=== PATIENT | female | born 1980 | race Caucasian/White ===

== ENCOUNTER 2024-12-10 19:47 | Inpatient (IN) | payer MEDICARE, SELFPAY ==
[2024-12-10] VITALS (8 sets, daily range): BP systolic 106–135; BP diastolic 67–87; BMI 30.1; BMI 29.3
[2024-12-10 16:10] LABS: Glucose - Point of Care 539 mg/dl (70-99)
[2024-12-10 16:30] LABS: Hematocrit 31.0 % (37.0-47.0); Hemoglobin 10.7 g/dL (12.0-16.0); Mean Corp Hgb Conc. 34.5 g/dL (33.0-37.0); Mean Corpuscular Volume 88.6 fL (81.0-99.0); Nucleated Red Blood Cells % 0 %; Platelet Count 179 10^3/uL (130-400); Red Cell Dist. Width 19.1 % (11.5-14.5)
--- NOTE | 2024-12-10 17:05 | ED.GENMED ---
History of Present Illness
General
Chief Complaint: Blood Sugar Problem
Source: patient
Exam Limitations: none
Time Seen by Provider: 12/10/24 16:18
Nursing documentation reviewed up to this point in time: agreed with
History of Present Illness
History of Present Illness:
Patient with history of insulin-dependent diabetes, presents to ED secondary to elevated blood sugar, with concern that her insulin pump may not be functioning normally. Patient states that she recently updated her software on her pump and replaced
pump with insulin yesterday. Patient now thinks that may be the location of her pump may be the problem, due to underlying scar tissue from previous abdominal surgeries. Denies fever or chills. Denies vomiting or diarrhea. Denies abdominal pain.
Denies dizziness. Denies weakness.
Past History
Past History
ED Past Medical History: IDDM
ED Past Surgical History: None
Social History
Alcohol: Chronic alcoholic
Drug: Marijuana
Personal:
Living: with family
Family History
Family History: Other (reviewed and noncontributory)
Review of Systems
Review of Systems
Allergies reviewed?: Yes
All Other Systems: ROS reviewed and negative except as documented in HPI and ROS
Constitutional: Reports no symptoms
Respiratory: Reports no symptoms
Cardiac: Reports no symptoms
ABD/GI: Reports no symptoms; Denies abdominal pain, vomiting or diarrhea
: Reports no symptoms
Musculoskeletal: Reports no symptoms
Skin: Reports no symptoms
Neurological: Reports no symptoms; Denies dizzy or weakness
Phy Exam
Physical Exam
Physical Exam:
Physical Exam
General: no apparent distress, not acutely ill. afebrile
Head: nc/at. eomi
Neck: supple. no meningeal signs.
Heart: s1/s2 regular rate and rhythm. tachycardic
Lungs: no acute respiratory distress. clear bilaterally
Abdomen: normal bowel sounds. not tender.
Neuro: alert and oriented x 3. no focal neurological deficits
Skin: no rash
Psychiatric: well kept. interactive and cooperative
Extremities: no edema. no calf tenderness.
Course
Orders/Labs/Results
Orders:
Orders
12/10/24 16:13
Electrocardiogram (*1) Urgent
Reason for Study: Fatigue / Weakness
12/10/24 16:14
EKG- Treatment ONCE
12/10/24 16:23
Complete Blood Count/With Diff Urgent
Glycohemoglobin (HgbA1c) Urgent
12/10/24 16:34
Add On- LAB Urgent
Tests Added?: Magnesium, beta hydroxybutyrate, hemoglobin A1c
12/10/24 16:50
0.9% Sodium Chloride 1000 ml [Nss] 1,000 ml IV BOLUS
Insulin Aspart [NOVOLOG vial] 10 units SC NOW STA
12/10/24 17:15
B-Hydroxybutyrate Urgent
Comprehensive Metabolic Panel Urgent
Magnesium Urgent
Venous Blood Gas Urgent
%Oxygen/Room Air: 95
12/10/24 19:11
Reg Insulin 100 Units/100 ml [Novolin R Insulin Infusion] 100 units in 100 ml IV NOW
12/10/24 19:31
Admit/Transfer Patient As Directed
Co-Sign Provider:
Level of Care: Inpatient admission
Assign to:: Telemetry
Physician / Group: tiffanie rivers
Diagnosis: hyperglycemia/ iddm, afib
Reason for Telemetry: Arrhythmia
Date to Stop Telemetry: 12/13/24
Time to Stop Telemetry: 11:00
Reason for Hospitalization: hyperglycemia/ iddm, afib
Expected length of stay greater than two midnights?: Yes
ELOS- Estimated Length of Stay in days: 3
I certify the patient meets the requirements for IP care: Yes
Code Status As Directed
Resuscitation Status: Full Code
12/10/24 19:33
PRN Pain Medication Management As Directed
May give lesser potent ordered pain med per pt: Yes
preference::
Protocol:: Medication orders for pain may be administered in a
manner that supports deferring to patient preference
when the pt is:
- Requesting an ordered lesser potent pain medication.
Least to most potent pain medications are defined
as: acetaminophen < NSAID < tramadol < opioids
(morphine, oxycodone, hydromorphone).
- Requesting a lesser dose of the same medication IF
ORDERED.
- Requesting a less intrusive route of administration
if both routes are prescribed by the provider (PO <
IV).
12/13/24 11:00
DC Protocol for Telemetry ONCE
Abnormal Lab Results
12/10/24 12/10/24 12/10/24
16:08 16:23 17:15
RBC 3.50 L 10^6/uL
(4.20-5.40)
Hgb 10.7 L g/dL
(12.0-16.0)
Hct 31.0 L %
(37.0-47.0)
RDW 19.1 H %
(11.5-14.5)
Absolute Lymphs (auto) 1.0 L 10^3/uL
(1.2-3.4)
Absolute Monos (auto) 0.9 H 10^3/uL
(0.1-0.6)
Lymphocytes % 19.8 L %
(20.5-51.1)
Monocytes % 17.7 H %
(1.7-9.3)
VBG pH 7.47 H
(7.32-7.43)
VBG pO2 162 H mmHg
(30-50)
VBG HCO3 27.7 H mmol/L
(22-27)
Sodium 123 L mmol/L
(135-145)
Chloride 83 L mmol/L
(98-107)
Glucose 605 H* mg/dl
(70-99)
AST 78 H U/L
(14-36)
Alkaline Phosphatase 189 H U/L
(38-126)
B-Hydroxybutyrate 2.99 H mmol/L
(0.02-0.27)
POC Glucose 539 H* mg/dl
(70-99)
12/10/24 12/10/24
18:48 19:47
RBC
Hgb
Hct
RDW
Absolute Lymphs (auto)
Absolute Monos (auto)
Lymphocytes %
Monocytes %
VBG pH
VBG pO2
VBG HCO3
Sodium
Chloride
Glucose
AST
Alkaline Phosphatase
B-Hydroxybutyrate
POC Glucose 359 H mg/dl 192 H mg/dl
(70-99) (70-99)
12/10/24 16:23
12/10/24 17:15
Vital Signs
Initial and Last Documented VS:
Initial Vital Signs
BP
135/81
12/10/24 16:10
Last Documented Vital Signs
Temp Pulse Resp BP Pulse Ox
98.0 F 142 22 118/69 99
12/10/24 16:14 12/10/24 20:00 12/10/24 20:00 12/10/24 19:40 12/10/24 19:06
MDM/Problems Addressed
MDM/Problems Addressed:
History and exam concerning for significant hypoglycemia. Although there is no anion gap with normal pH, beta hydroxybutyrate level elevated. With patient's history of previous DKA, patient will be admitted on insulin drip for further evaluation.
Patient's insulin pump may need to be investigated.
*Pulse Oximetry
SaO2: 97
Oxygen Mode of Delivery: Room air
Patient hypoxic: no
*Critical Care Note
Total Time (30-74mins, 75-104mins- exclusive of procedures): Not Applicable
ED Attending Note
-
Portions of this chart may have been created with voice recognition software.� Occasional wrong word or��sound alike� substitutions may have occurred due to the inherent limitations of voice recognition software.
Discharge Plan
Departure
Patient Disposition: Admit
Date of Disposition: 12/10/24
Time of Disposition: 18:30
Admit to: Telemetry
Presentation/result/management discussed w/ accepting MD/DO: Hospitalist
Discharge Problem:
Hyperglycemia
Interventions
Interventions:
*Risk Screen - Suicide Last Done: 12/10/24 16:14
*General Assessment Last Done: 12/10/24 16:14
*Neglect/Abuse Screening Last Done: 12/10/24 16:14
*ED- Fall Risk Assessment Last Done: 12/10/24 16:14
*ED COVID-19 Vaccine History Last Done: 12/10/24 16:14
ED- Neurological Assessment Last Done: 12/10/24 16:18
[2024-12-10] MEDS: NSS 1000 IV ×2 (17:21→22:05)
[2024-12-10] MEDS: NOVOLOG vial 10 UNITS SC (17:22)
[2024-12-10 17:37] LABS: Venous Blood Gas B.E. 3.8 mmol/L (-4 to +4); Venous Blood Gas O2 Sat % 100.0 %
[2024-12-10 17:38] LABS: Venous Blood Gas O2 Therapy Air 95
[2024-12-10 18:04] LABS: ALT (SGPT) 25 U/L (0-35); AST (SGOT) 78 U/L (14-36); Albumin 4.1 g/dl (3.5-5.0); Alkaline Phosphatase 189 U/L (38-126); Blood Urea Nitrogen 15 mg/dl (7-17); Calcium 8.7 mg/dl (8.4-10.2); Carbon Dioxide 25 mmol/L (22-30); Chloride 83 mmol/L (98-107); Estimated Creatinine Clearance 102 ml/min; Glucose 605 mg/dl (70-99); Magnesium 1.7 mg/dl (1.6-2.3); Potassium 3.7 mmol/L (3.5-5.1); Sodium 123 mmol/L (135-145); Total Protein 8.1 g/dl (6.3-8.2); eGFR > 60.00
--- NOTE | 2024-12-10 18:42 | HPS.HSE ---
Family Physician
-
Family Physician: NOT KNOW UNKNOWN - PT DOES
Chief Complaint
-
Elevated blood sugar
History of Present Illness
44-year-old female from home with elevated blood sugar. She reports she changed her pump site yesterday along with updating herself where. She believes she applied an area of scar tissue with prior abdominal surgeries. Her blood sugar was noted
to be 605 in the ER. After 10 units subcu insulin blood sugar is now 359. The patient denies headache, fever, chills, sore throat, chest pain, palpitations, cough, shortness of breath, abdominal pain, nausea, vomiting, diarrhea, urinary symptoms
She has a past medical history IDDM with insulin pump, gastroparesis, diabetic myonecrosis, A-fib, defibrillator, chronic CHF, tricuspid leaflet valve disorder, GERD, celiac, hypertension, hypothyroidism, depression, alcohol abuse, marijuana use.
Medical History
Past Medical History
Past Medical History: Reports Other
Additional Past Medical History:
IDDM with insulin pump
gastroparesis
diabetic myonecrosis
A-fib
defibrillator
chronic CHF
tricuspid leaflet valve disorder
GERD
celiac
hypertension
hypothyroidism
depression
alcohol abuse prior
marijuana use.
Past Surgical History: Reports Other
Additional Past Surgical History:
Defibrillator
Social History
Tobacco: Non-smoker
Alcohol: Former (Stopped June 2024 prior vodka daily)
Drug: Marijuana
Personal:
Living: Alone
Employment: Disabled
Family History
Family History: Not pertinent
Allergies / Home Medications
Allergies reflects when Allergies were last updated in [facility].
Home Medications with original date entered in [facility]
Allergy/Medication List:
Allergies
Allergy/AdvReac Type Severity Reaction Status Date / Time
latex Allergy Unknown Unknown Verified 08/12/25 16:17
Home Medications
amitriptyline 10 mg tablet 10 mg PO HS Depression 11/13/20
aspirin 81 mg tablet,delayed release 81 mg PO DAILY Blood clot prevention/tx 11/13/20
cholecalciferol (vitamin D3) 50 mcg (2,000 unit) tablet 2,000 units PO DAILY Supplement 11/13/20
acetaminophen 300 mg-codeine 30 mg tablet 1 tab PO DAILYPRN PRN moderate pain 02/17/21
biotin 1 mg capsule 1 mg PO DAILY Supplement 02/17/21
colesevelam 625 mg tablet (WelChol) 625 mg PO DAILY High cholesterol 02/17/21
cyanocobalamin (vitamin B-12) 1,000 mcg tablet 1,000 mcg PO DAILY Supplement 02/17/21
folic acid 1 mg tablet 1 mg PO DAILY Supplement 02/17/21
gabapentin 100 mg capsule 100 mg PO DAILY@1400 Pain 02/17/21
levothyroxine 150 mcg tablet 150 mcg PO DAILY AT 0700 Thyroid 02/17/21
Eliquis 5 mg PO BID 12/10/24
amiodarone 200 mg PO DAILY 12/10/24
azathioprine 25 mg PO DAILY 12/10/24
ferrous sulfate 325 mg PO DAILY 12/10/24
gabapentin 100 mg PO BID 12/10/24
magnesium oxide 250 mg PO DAILY 12/10/24
melatonin 12 mg PO HS PRN insomnia 12/10/24
midodrine 2.5 mg PO DAILY 12/10/24
naltrexone 50 mg PO DAILY 12/10/24
potassium chloride 20 meq PO DAILY 12/10/24
subcutaneous insulin pump 12/10/24
torsemide 20 mg PO DAILY 12/10/24
Review of Systems
-
History Source: Patient and Family (Father at bedside)
A 12 point ROS was completed and negative except as noted: Yes
Constitutional: Denies Fatigue or Chills
EENT: Denies Sore Throat or Runny Nose
Respiratory: Denies Cough or Trouble Breathing
Cardiac: Denies Chest Pain, Diaphoresis, Palpitations or Syncope
Abdomen/GI: Denies Abdominal Pain, Nausea, Vomiting, Diarrhea or Constipated
: Denies Dysuria, Frequency, Flank Pain or Incontinence
Musculoskeletal: Denies Joint Pain or Edema
Skin: Denies Itching or Rash
Neurological: Denies Dizzy, Headache or Weakness
Endocrine: Reports No Symptoms
Hematologic/Lymphatic: Reports No Symptoms
Psych: Reports Calm
Physical Exam
Vital Signs
Vital Signs
Temp Pulse Resp BP Pulse Ox
98.0 F 135 17 135/81 97
12/10/24 16:14 12/10/24 16:15 12/10/24 16:15 12/10/24 16:14 12/10/24 17:05
Physical Exam
General: Conversant; No Pain, Fever or Chills
HEENT: NormoCephalic, Anicteric, PERRLA, [place] Conjunctivae, No Ptosis and Other (Dry oral mucosa)
Respiratory: Clear; No Wheezes, Rales or Rhonchi
Cardiac: S1/S2 and Tachycardia (Sinus tach 120 bpm versus a flutter paroxysmal); No Murmur, Rub, Gallop or Peripheral Edema
Breast: Deferred by me
GI: Soft, Non Tender, Non Distended, Normal Bowel Sounds and No Hepatosplenomegaly
Rectal: Deferred by Provider
Genito-urinary: Deferred by me
Musculoskeletal: No Clubbing, No Cyanosis and No Edema
Skin: Warm and Dry; No Rash or Jaundice
Neuro: AO x 3, No Motor Deficits, Nonfocal/grossly intact, Cranial Nerves Intact and No Sensory Deficits; No Slurred Speech, Facial Droop, Tremors or Sedated
Psych: Calm
Laboratory Results
-
12/10/24 16:23
12/10/24 17:15
Laboratory Results
Total Bilirubin 1.0 mg/dl (0.2-1.3) 12/10/24 17:15
AST 78 U/L (14-36) H 12/10/24 17:15
ALT 25 U/L (0-35) 12/10/24 17:15
Alkaline Phosphatase 189 U/L (38-126) H 12/10/24 17:15
Impression/Plan
-
Impression/plan:
Admit to telemetry
#Acute hyperglycemia nonketotic/IDDM likely due to malfunctioning insulin pump/diagnosis age 28
#History of diabetic neuropathy
HgbA1c 4 months ago 10.1
Blood sugar 605, B hydroxy 2.99, anion gap 15, pH 7.47
-Blood sugar down to 359 post 10 units subcu insulin
-Patient to change insulin site will monitor blood sugars every 4 hours with new insulin site
- Continue gabapentin
- If blood sugar not controlled by a.m. may consult clinical nurse educator
#Tachycardia acute on chronic versus paroxysmal A-fib with NEW RBBB
-IV NSS 100 cc an hour
-IV NSS 1 L x 1 L
- As needed Lopressor for HR greater than 120 persistent
EKG sinus tach 135 bpm with right bundle branch block
#Pseudohyponatremia due to hyperglycemia
NA 123-corrected sodium 131
- BMP in a.m.
# A-fib paroxysmal
#Defibrillator hx
#Tricuspid leaflet valve disorder
- Patient is due for surgical repair January 23
#Chronic CHF
Hold current torsemide
#Alcohol abuse prior, remission June 2024
Was drinking daily vodka for many years until July 23
#Marijuana use
Reports has not smoked in a few months
#Normocytic anemia
Hgb 10.7, MCV 88.6
#History gastroparesis due to DM 2
#History of diabetic myonecrosis
Was diagnosed at [facility]
- Patient receives IVIG just had last 2 days
#GERD
No reported meds
#Celiac disease
#HTN
- BP 135/81
#Hypothyroidism
- Continue levothyroxine
#Raynaud's
#Iron deficiency
Continue Feosol
#Depression
- Continue naltrexone 50 mg daily, azathioprine 25 mg, amitriptyline 10 mg at bedtime
DVT prophylaxis
Full code
[2024-12-10 18:49] LABS: Glucose - Point of Care 359 mg/dl (70-99)
--- NOTE | 2024-12-10 19:43 | W.PN.UPDATE ---
Update Note
Progress Note Update
This is an addendum to H&P written by Cnady Ragsdale on 12/10/2024. �Patient seen and examined independently with ADDICTIONS THERAPIST.
44-year-old female past medical history of type 1 diabetes, DKA, diabetic gastroparesis, paroxysmal atrial fibrillation on Eliquis, congestive heart failure, tricuspid valve disorder due for repair soon, celiac disease, Raynaud's disease, chronic
anemia, former alcohol use disorder, former marijuana use disorder, myositis on IVIG, eczema, presenting with elevated blood sugar due to placing an insulin pump likely being placed over scar tissue. �No fevers or chills, vomiting or diarrhea,
abdominal pain. �No weakness.
Slight palpitations earlier. �Heart rate at home can sometimes go up to 120s
Vital signs show tachycardia. �EKG with right bundle branch block, sinus tachycardia vs atrial flutter heart rate 127. Ketone smelling breath.�
Blood work shows sodium of 123. �Blood sugar 605. �Hemoglobin stable 10.7. �Anion gap of 15. �VBG showed pH of 7.47. �Beta hydroxybutyrate 2.99.
Patient with hyperglycemia secondary to likely misplaced pump over scar tissue. �No signs of DKA on labs. �She was given 10 units of NovoLog with improvement in blood sugar to 359. �Resume insulin pump over different location. �Continue IV fluids.
�If blood sugars not improved in the morning and consult diabetes ADDICTIONS THERAPIST.
Lopressor if needed for persistent tachycardia. �Should hopefully improve with IV fluids if sinus tachycardia.
[2024-12-10 19:49] LABS: Glucose - Point of Care 192 mg/dl (70-99)
[2024-12-10 21:55] LABS: Glucose - Point of Care 307 mg/dl (70-99)
[2024-12-10] MEDS: TYLENOL 650 MG PO (22:05)
[2024-12-10] MEDS: ELAVIL 10 MG PO (22:05)
[2024-12-10] MEDS: ELIQUIS 5 MG PO (22:06)
[2024-12-10] MEDS: LOPRESSOR 5 MG IV (22:07)
[2024-12-10] MEDS: PATIENT'S OWN INSULIN PUMP 3 UNITS SC (22:08)
--- NOTE | 2024-12-10 22:20 | VATNOTE ---
CURRENT IV SITE INSERTED 12/09 BY HOME FASTENER SEWING MACHINE OPERATOR FOR ANTICIAPTED 2DAYS OF IVIG INFUSIONS.PT ADMITTED TO HOSPITAL FOR LESS KAYLA 24 HOUR STAY. PT STATES SHE IS AN IMPOSSIBLE IV STICK AND IS REQUESTING IV SITE BE MAINTAINED. SITE APPEARS WNL. VAT TO
FOLLOW. PCN AWARE OF PLAN OF CARE.
[2024-12-10] MEDS: NEURONTIN 100 MG PO (22:35)
--- NOTE | 2024-12-10 23:00 | PTCARENOTE ---
pt is aaox3 no c/o pain, sob, or palpitations. DN=288's - administered iv Lopressor w/=eff. MG=864's. pt has own insulin pump to left lower abdomen. AccuCheck= 307 -insulin pump pr patient is Humalog .75 basal/hr and she administered 3units for
current AccuCheck. Updated MANAGER OB Justo.
Pt has right forearm INT that was placed by home infusion nurse for IVIG therapy - informed VAT---evaluated by Yudith FLETCHER and felix to use.
pt is oriented to room w/ call bishop in reach.
pt follows multiple specialist and has heart surgery schedule for valve repair in December. updated pt physician list and copy placed in chart.
[2024-12-11] VITALS (9 sets, daily range): BP systolic 107–152; BP diastolic 60–99; BMI 29.3; BMI 30.1
[2024-12-11 00:08] LABS: Glucose - Point of Care 314 mg/dl (70-99)
[2024-12-11 01:43] LABS: Glucose - Point of Care 230 mg/dl (70-99)
--- NOTE | 2024-12-11 01:54 | W.PN.UPDATE ---
Update Note
Progress Note Update
BS 307, patient bolusing her self, BS 230 at 0150
HR 144 Afib 133/76 afebrile. will order extra 5mg IV Lopressor now, labs now
patient asymptomatic.
[2024-12-11] MEDS: LOPRESSOR 5 MG IV ×4 (01:56→20:09)
[2024-12-11 02:32] LABS: Blood Urea Nitrogen 12 mg/dl (7-17); Calcium 8.9 mg/dl (8.4-10.2); Carbon Dioxide 29 mmol/L (22-30); Chloride 95 mmol/L (98-107); Estimated Creatinine Clearance 118 ml/min; Glucose 253 mg/dl (70-99); Magnesium 1.8 mg/dl (1.6-2.3); Potassium 2.8 mmol/L (3.5-5.1); Sodium 133 mmol/L (135-145); eGFR > 60.00
[2024-12-11] MEDS: KCL 40 MEQ PO ×3 (03:24→13:14)
[2024-12-11 03:39] LABS: Glucose - Point of Care 187 mg/dl (70-99)
[2024-12-11] MEDS: SYNTHROID 150 MCG PO (07:04)
--- NOTE | 2024-12-11 07:27 | W.PN.HOSP.TC ---
Today's Communication/Plan
-
See plan
Assessment / Plan
Assessment / Plan
Physical Exam
General: Not in acute distress
HEENT: Normocephalic, Moist mucosal membranes
Respiratory: Clear to Auscultation Bilaterally
Cardiac: S1/S2. Regular Rhythm and Tachycardia
GI: Soft, Non Tender, Non Distended, Normal Bowel Sounds
Musculoskeletal: No Cyanosis and No Edema
Skin: Warm and Dry
Neuro: AAO x 3, No Motor Deficits, Nonfocal/grossly intact, Cranial Nerves Intact and No Sensory Deficits
Psych: Calm
Assessment/Plan
44-year-old female past medical history of Type 1 Diabetes Mellitus, DKA, diabetic gastroparesis, diabetic myonecrosis?, paroxysmal atrial fibrillation on Eliquis, congestive heart failure, defibrillator, tricuspid valve disorder due for repair
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
pump likely being placed over scar tissue. No fevers or chills, vomiting or diarrhea, abdominal pain. No weakness. No evidence of DKA noted at the time of admission. Slight palpitations earlier. Heart rate at home can sometimes go up to 120s bpm.
Vital signs at the time of admission showed tachycardia. EKG with right bundle branch block, sinus tachycardia versus atrial flutter with heart rate of 127 bpm. Ketone smelling breath. Blood work showed sodium of 123. Blood sugar 605. Hemoglobin
stable 10.7. Anion gap of 15. VBG showed pH of 7.47. Beta hydroxybutyrate 2.99. Patient with hyperglycemia secondary to likely misplaced pump over scar tissue. She was given 10 units of NovoLog with improvement in blood sugar to 359. Resume
insulin pump over different location. Continue IV fluids. If blood sugars not improved in the morning and consult diabetes MOLD CAPPER. Lopressor if needed for persistent tachycardia. Should hopefully improve with IV fluids if sinus tachycardia. The
patient denied headache, fever, chills, sore throat, chest pain, palpitations, cough, shortness of breath, abdominal pain, nausea, vomiting, diarrhea or urinary symptoms.
#Acute hyperglycemia nonketotic/IDDM likely due to malfunctioning insulin pump/diagnosis age 28
#Type 1 Diabetes Mellitus
#History of diabetic neuropathy
-HgbA1c 4 months ago 10.1
-Initial blood sugar 605, B hydroxy 2.99, anion gap 15, pH 7.47 on venous blood gas, glucose improved with Insulin
-Patient to change insulin site will monitor blood sugars every 4 hours with new insulin site
-Patient stated that she DOES not take Lantus at home, but uses her Insulin Pump only
-Consulted Diabetes MOLD CAPPER as blood sugars still not controlled
#Pseudohyponatremia due to hyperglycemia likely from malfunction/malabsorption of insulin pump
- Improved with improvement in glucose levels
#Severe Hypokalemia
-Patient says that she does not take Potassium at home
-Magnesium okay -- but supplementation has been added to optimize serum Magnesium
-Replaced
-Recheck BMP
#Known History of A-fib/Atrial Flutter
#Sinus Tachycardia
-Patient reported that she has tachycardia chronically with HR up to ~120 bpm, today she was in the 130s
-Continue Eliquis
-Continue home amiodarone and metoprolol for goal heart rate less than 110 bpm
-Upon review of outpatient cardiology records it is believed her atrial arrhythmias are being driven by her 'massive' tricuspid regurgitation
#Chronic CHF
-Although patient received significant amount of IV fluids since admission, overall she appears euvolemic and compensated from a volume standpoint
-Patient underwent recent ANASTASIIA and therefore would not recommend repeating transthoracic echo at this time
-Continue torsemide
#Ventricular tachycardia/cardiac arrest in setting of acute DKA in October 2023 status post ICD which was explanted and now with subcutaneous Medtronic ICD placement, August 2024
#Defibrillator history -- subcutaneous Medtronic ICD
- Cardiology will arrange for ICD interrogation here in the hospital
#Recent Lower Jaw Molar (bottom 3 teeth removal)
-Continue home antibiotics Amoxicillin
#Severe Tricuspid leaflet valve disorder
- Patient is due for surgical repair in the next 1-2 months through her primary ui software engineer at [facility]
#Marijuana use
-Reports has not smoked in a few months
#Normocytic anemia
-Continue to monitor CBC
-Continue home iron supplementation
#History gastroparesis due to Type 2 Diabetes Mellitus
#History of diabetic myonecrosis
#Myopathy
- Was diagnosed at [facility]
- Patient receives IVIG; patient is due for her Gamunex (pharmacist Connie Manning here called and left a message for this patient's infusion pharmacy)
#History of Rhabdomyolysis
#GERD
-Stable
-Continue to monitor
#Celiac disease
#Hypertension
-Continue beta natalie
-Continue aldactone
#Hypothyroidism
- Continue Levothyroxine 200 mcg daily
- Although patient says she takes a gluten-free preparation at home, patient says that she is fine with taking the one available here in the hospital
#Raynaud's
#Psoriasis
-Takes Skyrizi outpatient
#Diabetic Neuropathy
-Continue home Gabapentin
#Iron deficiency
-Continue home Ferrous Sulfate
#Depression
- Mood stable
#History of Alcohol Use Disorder
- Patient has been sober for many months
- Continue naltrexone 50 mg daily
#Macular Edema (in left eye, both eyes are being treated)
#Celiac Disease
DVT prophylaxis: Eliquis
Code Status: Full code
Outpatient, patient said she sees a Teacher Citizenship, Pocket Builder, Fuel Truck Driver, Rental Salesperson, Primary care, Marketing Services Manager, [place], Vocational Teacher, Cardiac Electrophysiology and Neurology.
Total time spent today on caring for patient, including seeing and examining patient, chart review, placing orders, reviewing home medications, reviewing outside records, coordinating care with cardiology team and Diabetes Nurse Practitioner, and
documentation, was 65 minutes.
Anticipated Discharge: Within 24 hours
Subjective/Interval History
-
Date of Service: December 11, 2024
Patient was seen and examined. She denied any nausea, vomiting, dizziness, chest pain, shortness of breath or any other complaints.
Objective Data
-
Labs:
Laboratory Results
12/11/24
01:59
Sodium 133 L D
Potassium 2.8 L
Chloride 95 L
Carbon Dioxide 29
BUN 12
Creatinine 0.5 L
Glucose 253 H
Calcium 8.9
Vital Signs:
Vital Signs
Temp Pulse Resp BP Pulse Ox
98.7 F 129 18 121/75 100
12/11/24 03:15 12/11/24 03:15 12/11/24 03:15 12/11/24 03:15 12/11/24 03:15
I&O
12/10/24 12/11/24 12/12/24
06:59 06:59 06:59
Intake Total 500 / 500
Balance 500 / 500
[2024-12-11 08:09] LABS: Glucose - Point of Care 140 mg/dl (70-99)
[2024-12-11] MEDS: ASPIR LOW (ENTERIC COATED) 81 MG PO (08:14)
[2024-12-11] MEDS: FOLVITE 1 MG PO (08:14)
[2024-12-11] MEDS: NEURONTIN 100 MG PO ×3 (08:15→20:08)
[2024-12-11] MEDS: FEOSOL 325 MG PO ×2 (08:15→20:08)
[2024-12-11] MEDS: VITAMIN D3 (cholecalciferol) 50 MCG PO (08:15)
[2024-12-11] MEDS: ELIQUIS 5 MG PO ×2 (08:15→20:08)
[2024-12-11] MEDS: VITAMIN B-12 1000 MCG PO (08:15)
[2024-12-11] MEDS: REVIA 50 MG PO (08:16)
[2024-12-11] MEDS: PACERONE 200 MG PO (08:16)
[2024-12-11] MEDS: PATIENT'S OWN INSULIN PUMP SC (08:46)
[2024-12-11] MEDS: LR 500 IV (10:09)
[2024-12-11 10:11] LABS: Albumin 3.7 g/dl (3.5-5.0); Magnesium 1.9 mg/dl (1.6-2.3)
[2024-12-11] MEDS: MAGNESIUM OXIDE 500 MG PO (10:11)
[2024-12-11] MEDS: KCL 270 MEQ IV (10:11)
--- NOTE | 2024-12-11 10:13 | CON.CAR ---
Addendum entered and electronically signed by Jian Mario MD 12/11/24 13:09:
I saw and examined the patient on morning rounds.
The Agency Recruiter's note was reviewed and I agree with the note.
Comment: Briefly, 44-year-old woman past medical history of cardiac arrest status post subcutaneous ICD for secondary prevention, heart failure with preserved ejection fraction, severe tricuspid regurgitation, paroxysmal atrial fibrillation and type
1 diabetes presenting with DKA. Cardiology is consulted for tachycardia.
Patient with known history of atrial fibrillation/atrial flutter
Appears to be in atrial flutter by review of ECG and telemetry here
With treatment of DKA/fluid resuscitation tachycardia may improve
Would continue home amiodarone and metoprolol for goal heart rate less than 110 bpm
Continue home Eliquis for risk reduction of cardioembolic stroke
Overall appears euvolemic and compensated from a volume standpoint
Patient does have known severe tricuspid regurgitation and is undergoing workup for possible repair next month through her primary fashion consultant sales at [facility]
Underwent recent ANASTASIIA and therefore would not recommend repeating transthoracic echo at this time
For completeness we will arrange for ICD interrogation
Original Note:
Consultation
Consultation Request
Date/Time Consultation Requested: 12/11/2024
Date/Time Consultation Performed: 12/11/2024
Requesting Provider: Dr. Buckner
Performing Provider: Lucy Schmidt PA-C for Dr. Mario
Reason for Consultation: Tachycardia
Medical History
-
History of Present Illness:
Patient has a 44-year-old female past medical history of type 1 diabetes, DKA, diabetic gastroparesis, paroxysmal atrial fibrillation on Eliquis, Cardiac arrest with Medtronic ICD in 2023 on amiodarone, chronic heart failure, tricuspid valve
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
due to placing her insulin pump over scar tissue with failure to deliver insulin. She was found to have significantly elevated blood sugar at home and was seen by a nurse who recommended she be evaluated in emergency department. On arrival to
emergency department glucose was 605. She was provided insulin with improvement of her sugar. From a cardiac standpoint she has noted intermittent palpitations but she reports this is normal for her. She denies chest pain, shortness of breath,
dizziness or lightheadedness, edema, orthopnea, PND. �No fevers or chills, vomiting or diarrhea, abdominal pain. �No weakness.
Cardiology being consulted for concern of tachycardia, atrial fibrillation/flutter.
Patient reports outpatient fashion consultant sales is Dr. Yang Dotson in [facility] . Supply Chain Design Manager is Dr. Moisés Vargas [phone] with [facility] cardiology. Dr. Kevin Braxton thoracic surgery at [facility] [phone]
She reports she has a tricuspid valve disorder and had ANASTASIIA last week at [facility]. She is being followed by Dr. Kevin Braxton of thoracic surgery and has an appointment next week to discuss next step for her valvular heart disease.
Past medical history:
IDDM with insulin pump
Gastroparesis
Diabetic myonecrosis
Paroxysmal atrial fibrillation
Chronic anticoagulation on Eliquis
Cardiac arrest with Medtronic ICD placement
Chronic heart failure
Tricuspid leaflet valve disorder
GERD
Celiac
Hypertension
Hypothyroidism
Raynaud's disease
Depression
Prior alcohol abuse prior
History of marijuana use
Past Medical History
Past Medical History: Other (See HPI)
Past Surgical History: Cardiac (Subcutaneous Medtronic ICD) and Other (Partial finger amputations)
Social History
Tobacco: Non-Smoker
Alcohol: Former (Quit in June 2024, drank vodka daily)
Drug: Marijuana
Personal:
Living: Alone
Employment: Disabled
Family History
Family History: CAD (Father coronary artery disease, paroxysmal atrial fibrillation)
Allergies / Home Medications
Allergy/AdvReac Type Severity Reaction Status Date / Time
gluten Allergy Nausea Verified 12/10/24 23:05
latex Allergy Per Verified 12/10/24 21:18
�Medication �Instructions �Recorded �Confirmed �Type
amitriptyline 10 mg tablet 10 mg PO HS Depression 11/13/20 12/11/24 History
aspirin 81 mg tablet,delayed 81 mg PO DAILY Blood clot 11/13/20 12/10/24 History
release prevention/tx
cholecalciferol (vitamin D3) 50 2,000 units PO DAILY Supplement 11/13/20 12/10/24 History
mcg (2,000 unit) tablet
acetaminophen 300 mg-codeine 30 mg 1 tab PO DAILYPRN PRN moderate pain 02/17/21 12/11/24 History
tablet
biotin 1 mg capsule 1 mg PO DAILY Supplement 02/17/21 12/11/24 History
colesevelam 625 mg tablet (WelChol) 625 mg PO DAILY High cholesterol 02/17/21 02/17/21 History
cyanocobalamin (vitamin B-12) 1,000 mcg PO DAILY Supplement 02/17/21 12/10/24 History
1,000 mcg tablet
folic acid 1 mg tablet 1 mg PO DAILY Supplement 02/17/21 12/10/24 History
gabapentin 100 mg capsule 100 mg PO DAILY@1400 Pain 02/17/21 12/10/24 History
levothyroxine 150 mcg tablet 150 mcg PO DAILY AT 0700 Thyroid 02/17/21 12/10/24 History
Eliquis 5 mg PO BID Blood Clot 12/10/24 12/10/24 History
Prevention/Tx
amiodarone 200 mg PO DAILY Heart 12/10/24 12/11/24 History
Disease/Condition
azathioprine 25 mg PO DAILY Gout 12/10/24 12/10/24 History
ferrous sulfate 325 mg PO DAILY Supplement 12/10/24 12/10/24 History
gabapentin 200 mg PO TID Neurological 12/10/24 12/11/24 History
Condition
magnesium oxide 250 mg PO DAILY Supplement 12/10/24 12/10/24 History
melatonin 12 mg PO HS PRN insomnia 12/10/24 12/10/24 History
midodrine 2.5 mg PO DAILY Blood Pressure 12/10/24 12/10/24 History
naltrexone 50 mg PO DAILY ALCOHOL 12/10/24 12/10/24 History
potassium chloride 20 meq PO DAILY Supplement 12/10/24 12/10/24 History
subcutaneous insulin pump 12/10/24 12/10/24 History
torsemide 20 mg PO TID Fluid 12/10/24 12/11/24 History
Retention/Swelling
immune globulin(hum),capr(IgG) 10 40 ml IV Q3D Autoimmune Disorder 12/11/24 12/11/24 History
% intravenous solution
metoprolol succinate 25 mg 25 mg PO Q12H Blood Pressure 12/11/24 12/11/24 History
tablet,extended release 24 hr
risankizumab-rzaa 150 mg/mL 150 mg SC [id number] Autoimmune 12/11/24 12/11/24 History
subcutaneous pen injector (Skyrizi) Disorder
Review of Systems
-
History Source: Patient
All other systems: Negative unless noted
Physical Exam
Vital Signs
Temp Pulse Resp BP Pulse Ox
97.6 F 128 16 107/60 95
12/11/24 07:00 12/11/24 07:00 12/11/24 07:00 12/11/24 07:00 12/11/24 07:00
GEN: No distress, awake, Ox3, sitting in bed
HEENT: supple, anicteric, mmm
LUNGS: CTA, no wheezes/rales
CV: Reg rate and rhythm but tachycardic, S1/S2, 2/6 syst LSB murmur
ABD: soft, BS+, NT/ND
EXT: No edema, clubbing or cyanosis
NEURO: Gross non-focal
SKIN: No rash, warm, dry, pink
Lab Results
12/10/24 16:23
12/11/24 09:33
Troponin I Cancelled 12/11/24 21:45
Xfi-S-Jttgwvhhmpc Pept 1760 pg/ml 12/11/24 08:49
Impression / Plan
-
Outpatient fashion consultant sales is Dr. Yang Dotson in [facility] .
Supply Chain Design Manager is Dr. Moisés Vargas [phone] with [facility] cardiology.
Dr. Kevin Braxton thoracic surgery at [facility] [phone]
Impression:
Presented 12/10/2024 with weakness, hyperglycemia
Acute hyperglycemia
Hypokalemia
Hypomagnesemia
Paroxysmal atrial flutter/fibrillation
Sinus tachycardia
Severe tricuspid regurgitation
Paroxysmal atrial fibrillation
Chronic anticoagulation on Eliquis
Ventricular tachycardia/cardiac arrest in setting of acute DKA in October 2023 status post ICD which was explanted and now with subcutaneous Medtronic ICD placement, August 2024
Chronic heart failure
IDDM with insulin pump
Gastroparesis
Diabetic myonecrosis
Chronic anemia, baseline hemoglobin 8-9
GERD
Celiac
Hypertension
Hypothyroidism
Raynaud's disease with partial finger amputations
Depression
Prior alcohol abuse prior
History of marijuana use
Cardiac catheterization 11/02/2023 ([facility]): Mild nonobstructive coronary artery disease. Moderately elevated LVEDP. No significant xkzj-[id number] gradient on pullback across aortic valve.
ANASTASIIA September 11, 2024 ([facility]): EF 60 to 65%, LA dilated, RA severely dilated, trace MR, massive tricuspid regurgitation with central small jet that originates near septal leaflet versus between atrial septal can measure raising a possibility of either a
small perforation or mall coaptation and RV mildly dilated
Echo 11/13/2020: EF 70 to 75%. Hyperdynamic LV. Normal regional wall motion. Trace tricuspid regurgitation. PAP 27 mmHg
Plan:
-Presented 12/10/2024 with weakness, hyperglycemia was was found to be acute hyperglycemia likely from malfunction/malabsorption of insulin pump. Blood sugars significantly improved with insulin.
-Electrolyte disturbance with hypoglycemia and hypomagnesemia. Aggressive repletion of magnesium and potassium. I personally ordered repletion
-Patient has ongoing tachycardia with periods of paroxysmal atrial flutter/fibrillation. Upon review of outpatient cardiology records it is believed her atrial arrhythmias are being driven by her 'massive' tricuspid regurgitation. She reports
heart rates at home are always on the higher side. Hopefully heart rates will improve with improvement of blood sugar, fluid resuscitation and correction of electrolytes. Could consider uptitrating Toprol or amiodarone temporarily.
-Continue Eliquis 5 mg twice a day. Patient reports she is compliant taking medication.
-History of cardiac arrest/ventricular tachycardia in setting of DKA in October 2023. She was found to have no significant coronary artery disease on catheterization with normal ejection fraction. She initially had traditional ICD but it was then
explanted and she currently has subcutaneous Medtronic ICD. Will interrogate device, rep has been contacted. No sustained ventricular arrhythmias noted on telemetry. Continue beta-natalie and amiodarone
-History of chronic heart failure with preserved ejection fraction. proBNP 1760. Patient does not appear to be acutely volume overloaded. She does not have any heart failure symptoms. Would continue current outpatient regimen of torsemide 40 mg
daily and Aldactone 12.5 mg daily.
-Patient reports she had ANASTASIIA last week at [facility] in [place] as she is undergoing evaluation for tricuspid valve surgery with Dr. Braxton at [facility]. She has an appointment with Dr. Braxton next week to discuss recent ANASTASIIA and
surgical plans. No clinical need to repeat or perform echo this admission
Outpatient records reviewed with above chart reflecting information. This included records from Dr. Braxton CT surgery, outpatient fashion consultant sales Dr. Duckworth and vice president digital strategist Dr. Vargas. I spent 78 minutes reviewing prior records from multiple
collaborating providers, [id number] encounter, treatment plan and decision, discussion with nursing, hospitalist, and documentation
[facility] 12/11/2024:
Patient has a 44-year-old female past medical history of type 1 diabetes, DKA, diabetic gastroparesis, paroxysmal atrial fibrillation on Eliquis, Cardiac arrest with Medtronic ICD in 2023 on amiodarone, chronic heart failure, tricuspid valve
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
due to placing her insulin pump over scar tissue with failure to deliver insulin. She was found to have significantly elevated blood sugar at home and was seen by a nurse who recommended she be evaluated in emergency department. On arrival to
emergency department glucose was 605. She was provided insulin with improvement of her sugar. From a cardiac standpoint she has noted intermittent palpitations but she reports this is normal for her. She denies chest pain, shortness of breath,
dizziness or lightheadedness, edema, orthopnea, PND. �No fevers or chills, vomiting or diarrhea, abdominal pain. �No weakness.
Cardiology being consulted for concern of tachycardia, atrial fibrillation/flutter.
Patient reports outpatient fashion consultant sales is Dr. Yang Dotson in [facility] . Supply Chain Design Manager is Dr. Moisés Vargas [phone] with [facility] cardiology. Dr. Kevin Braxton thoracic surgery at [facility] [phone]
She reports she has a tricuspid valve disorder and had ANASTASIIA last week at [facility]. She is being followed by Dr. Kevin Braxton of thoracic surgery and has an appointment next week to discuss next step for her valvular heart disease.
Data Reviewed
-
EKG: Report Reviewed by me, Discussed with Physician, Discussed with Nurse and Discussed with Patient
Labs: Labs Reviewed by me, Discussed with Physician, Discussed with Nurse and Discussed with Patient
Old Records: Reviewed
[2024-12-11 10:27] LABS: Blood Urea Nitrogen 8 mg/dl (7-17); Calcium 8.8 mg/dl (8.4-10.2); Carbon Dioxide 25 mmol/L (22-30); Chloride 101 mmol/L (98-107); Estimated Creatinine Clearance 118 ml/min; Glucose 147 mg/dl (70-99); Potassium 3.4 mmol/L (3.5-5.1); Sodium 135 mmol/L (135-145); eGFR > 60.00
--- NOTE | 2024-12-11 10:35 | PN.DE.MGMTRT ---
Insulin Management
- -
12/11/2024 Diabetes Management Consult
Patient admitted 12/10 with Blood sugar problem, glucose 605. PMH: diabetes, gastroparesis, diabetic myonecrosis, afib, defib, chronic CHF, GERD, celiac disease, HTN, hypothyroid, depression, alcohol abuse, marijuana use. Prior to admission was
using the tandem control IQ pump with humalog insulin, autosoft infusion set and DexCom G7. No A1C reported, cr .5, eGFR > 60.
Patient is awake alert and oriented, resting in bed. She is able to discuss diabetes care. States she sees and endocrine in [place]. States she just updated her pump to be able to use the G7, replaced infusion set, but inserted in scar tissue in
abdomen. She has since changed her set and pump is infusing. Glucose currently 146. Pump settings:
Basal .75 Sensitivity 45, carb ratio 12, target 110.
24 hour basal total 18 units.
Will continue insulin pump with no changes to settings.
Discussed with nurse
Will follow
Diabetes History
- -
Type of Diabetes: 1
Pre-Admission Diabetes Regimen
12/10/24 12/10/24 12/11/24
16:23 17:15 01:59
Creatinine Cancelled 0.7 0.5 L
12/11/24 12/11/24
08:49 09:33
Creatinine 0.5 L Cancelled
Insulin Pump Settings
IP Diabetes Regimen
12/10/24 12/10/24 12/10/24
16:08 16:23 17:15
Glucose Cancelled 605 H*
POC Glucose 539 H*
12/10/24 12/10/24 12/10/24
18:48 19:47 21:43
Glucose
POC Glucose 359 H 192 H 307 H
12/10/24 12/11/24 12/11/24
23:57 01:31 01:59
Glucose 253 H
POC Glucose 314 H 230 H
12/11/24 12/11/24 12/11/24
03:28 07:58 08:49
Glucose 147 H
POC Glucose 187 H 140 H
12/11/24
09:33
Glucose Cancelled
POC Glucose
Patient Education
--- NOTE | 2024-12-11 10:45 | CM ---
Patient seen bedside. IA completed.
Patent lives alone in a 2 story home. Does okay with steps as long as she has railings.
Patient has insulin pump.
Patient is independent prior to admission.
No Hx VN.
Patient does not anticipate d/c needs.
Father will transport.
PCP: Jazzmine Foster from [place]
Pharmacy: [facility] , [facility]
Plan: Home no needs anticipated.
[2024-12-11] MEDS: PT'S OWN INSULIN PUMP - HumaLOG SC ×3 (10:57→16:56)
[2024-12-11 11:06] LABS: Glycohemoglobin (HgbA1c) 9.8 % (4.0-5.6)
[2024-12-11 12:05] LABS: Glucose - Point of Care 187 mg/dl (70-99)
[2024-12-11] MEDS: VITAMIN B1 100 MG PO (13:15)
[2024-12-11] MEDS: ALDACTONE 12.5 MG PO (13:15)
[2024-12-11] MEDS: LOPRESSOR 25 MG PO (13:17)
[2024-12-11] MEDS: AMOXIL 500 MG PO ×3 (13:17→22:09)
--- NOTE | 2024-12-11 16:10 | TRANSFER ---
pt received from 1a in room 412-1. pt ambulated to bed independently. pt AAOx3, VSS other than HR elevated in 120s which is not new. call bishop within reach, plan of care ongoing
[2024-12-11] MEDS: TYLENOL 650 MG PO ×2 (16:32→20:07)
[2024-12-11 16:47] LABS: Glucose - Point of Care 178 mg/dl (70-99)
[2024-12-11] MEDS: TOPROL XL 25 MG PO (17:36)
[2024-12-11 21:27] LABS: Glucose - Point of Care 245 mg/dl (70-99)
[2024-12-11] MEDS: PT'S OWN INSULIN PUMP - HumaLOG 2.7 UNIT SC (21:56)
[2024-12-11] MEDS: MELATONIN 12 MG PO (22:10)
[2024-12-12 02:59] VITALS: BP 137/94
[2024-12-12] MEDS: LOPRESSOR 5 MG IV ×3 (03:09→19:11)
[2024-12-12 06:00] VITALS: BMI 29.9
[2024-12-12] MEDS: TYLENOL 650 MG PO ×3 (06:07→21:50)
[2024-12-12] MEDS: SYNTHROID 200 MCG PO (06:08)
[2024-12-12] MEDS: TOPROL XL 25 MG PO ×2 (06:08→12:46)
[2024-12-12 07:25] VITALS: BP 127/85
[2024-12-12 07:51] LABS: Glucose - Point of Care 146 mg/dl (70-99)
--- NOTE | 2024-12-12 07:58 | PN.DE.MGMTRT ---
Insulin Management
- -
12/12/2024 Diabetes Management Consult Follow up
Patient admitted 12/10 with Blood sugar problem, glucose 605. PMH: diabetes, gastroparesis, diabetic myonecrosis, afib, defib, chronic CHF, GERD, celiac disease, HTN, hypothyroid, depression, alcohol abuse, marijuana use. Prior to admission was
using the tandem control IQ pump with humalog insulin, autosoft infusion set and DexCom G7. No A1C reported, cr .5, eGFR > 60.
Patient is awake alert and oriented, resting in bed. She is able to discuss diabetes care. States she sees and endocrine in [place]. States she just updated her pump to be able to use the G7, replaced infusion set, but inserted in scar tissue in
abdomen. She has since changed her set and pump is infusing. Glucose range 146 to 245, corrected with 2.7 units. Fasting glucose 146. Pump settings:
Basal .75 Sensitivity 45, carb ratio 12, target 110.
24 hour basal total 18 units.
Will continue insulin pump with no changes to settings.
Discussed with nurse
Will follow
Diabetes History
- -
Type of Diabetes: 1
Pre-Admission Diabetes Regimen
12/11/24 12/11/24
08:49 09:33
Creatinine 0.5 L Cancelled
Lab Results
Hemoglobin A1c 9.8 % (4.0-5.6) H 12/10/24 16:23
Insulin Pump Settings
IP Diabetes Regimen
12/11/24 12/11/24 12/11/24
07:58 08:49 09:33
Glucose 147 H Cancelled
POC Glucose 140 H
12/11/24 12/11/24 12/11/24
11:53 16:46 21:26
Glucose
POC Glucose 187 H 178 H 245 H
12/12/24
07:50
Glucose
POC Glucose 146 H
Meal type: Dinner
Amount consumed: 100%
Patient Education
[2024-12-12 08:35] LABS: Hematocrit 32.6 % (37.0-47.0); Hemoglobin 10.3 g/dL (12.0-16.0); Mean Corp Hgb Conc. 31.6 g/dL (33.0-37.0); Mean Corpuscular Volume 96.2 fL (81.0-99.0); Platelet Count 141 10^3/uL (130-400); Red Cell Dist. Width 19.9 % (11.5-14.5)
--- NOTE | 2024-12-12 08:43 | W.PN.HOSP.TC ---
Today's Communication/Plan
-
Today I discussed patient's case with cardiology who said that patient should continue to be hospitalized given her tachycardia -- beta natalie increased and awaiting improvement in the tachycardia
Continue Insulin pump
Continue guideline directed medical therapy
Continue to monitor on telemetry
Assessment / Plan
Assessment / Plan
Physical Exam
General: Not in acute distress
HEENT: Normocephalic, Moist mucosal membranes
Respiratory: Clear to Auscultation Bilaterally
Cardiac: S1/S2. Regular Rhythm and Tachycardia
GI: Soft, Non Tender, Non Distended, Normal Bowel Sounds
Musculoskeletal: No Cyanosis and No Edema
Skin: Warm and Dry
Neuro: AAO x 3, No Motor Deficits, Nonfocal/grossly intact, Cranial Nerves Intact and No Sensory Deficits
Psych: Calm
Assessment/Plan
44-year-old female past medical history of Type 1 Diabetes Mellitus, DKA, diabetic gastroparesis, diabetic myonecrosis?, paroxysmal atrial fibrillation on Eliquis, congestive heart failure, defibrillator, tricuspid valve disorder due for repair
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
pump likely being placed over scar tissue. No fevers or chills, vomiting or diarrhea, abdominal pain. No weakness. No evidence of DKA noted at the time of admission. Slight palpitations earlier. Heart rate at home can sometimes go up to 120s bpm.
Vital signs at the time of admission showed tachycardia. EKG with right bundle branch block, sinus tachycardia versus atrial flutter with heart rate of 127 bpm. Ketone smelling breath. Blood work showed sodium of 123. Blood sugar 605. Hemoglobin
stable 10.7. Anion gap of 15. VBG showed pH of 7.47. Beta hydroxybutyrate 2.99. Patient with hyperglycemia secondary to likely misplaced pump over scar tissue. She was given 10 units of NovoLog with improvement in blood sugar to 359. Resume
insulin pump over different location. Continue IV fluids. If blood sugars not improved in the morning and consult diabetes SENIOR MOBILE APPLICATION DEVELOPER. Lopressor if needed for persistent tachycardia. Should hopefully improve with IV fluids if sinus tachycardia. The
patient denied headache, fever, chills, sore throat, chest pain, palpitations, cough, shortness of breath, abdominal pain, nausea, vomiting, diarrhea or urinary symptoms.
#Acute hyperglycemia nonketotic/IDDM likely due to malfunctioning insulin pump/diagnosis age 28
#Type 1 Diabetes Mellitus
#History of diabetic neuropathy
-NOT in DKA
-HgbA1c 4 months ago 10.1
-Initial blood sugar 605, B hydroxy 2.99, anion gap 15, pH 7.47 on venous blood gas, glucose improved with Insulin
-Patient to change insulin site will monitor blood sugars every 4 hours with new insulin site
-Patient stated that she DOES not take Lantus at home, but uses her Insulin Pump only
-Consulted Diabetes SENIOR MOBILE APPLICATION DEVELOPER as blood sugars still not controlled
#Pseudohyponatremia due to hyperglycemia likely from malfunction/malabsorption of insulin pump
- Resolved with improvement in glucose levels
#Severe Hypokalemia - RESOLVED
-Patient says that she does not take Potassium at home
-Magnesium okay -- but supplementation was given to optimize serum Magnesium, given her cardiac comorbidities
-Replaced
-Recheck BMP
#Known History of A-fib/Atrial Flutter
#Sinus Tachycardia
-Patient reported that she has tachycardia chronically with HR up to ~120 bpm -- still remains quite high, often above the 120s range
-Continue Eliquis
-Continue home amiodarone and metoprolol (Toprol increased on 12/12/24 to 50 mg BID for better HR control) for goal heart rate less than 110 bpm
-Upon review of outpatient cardiology records it is believed her atrial arrhythmias are being driven by her 'massive' tricuspid regurgitation
#Chronic CHF
-Although patient received significant amount of IV fluids since admission, overall she appears euvolemic and compensated from a volume standpoint
-Patient underwent recent ANASTASIIA and therefore would not recommend repeating transthoracic echo at this time
-Continue torsemide
-Continue Aldactone
-Patient reported that she had ANASTASIIA last week at [facility] in [place] as she is undergoing evaluation for tricuspid valve surgery with Dr. Braxton at [facility]. She has an appointment with Dr. Braxton next week to discuss recent ANASTASIIA and
surgical plans. No clinical need to repeat or perform echo this admission
#Ventricular tachycardia/cardiac arrest in setting of acute DKA in October 2023 status post ICD which was explanted and now with subcutaneous Medtronic ICD placement, August 2024
#Defibrillator history -- subcutaneous Medtronic ICD
- Cardiology will arrange for ICD interrogation here in the hospital
#Recent Lower Jaw Molar (bottom 3 teeth removal)
-Continue home antibiotics Amoxicillin
#Severe Tricuspid leaflet valve disorder
- Patient is due for surgical repair in the next 1-2 months through her primary fiber optics supervisor at [facility]
#Marijuana use
-Reports has not smoked in a few months
#Normocytic anemia
-Continue to monitor CBC
-Continue home iron supplementation
#History gastroparesis due to Type 2 Diabetes Mellitus
#History of diabetic myonecrosis
#Myopathy
- Was diagnosed at [facility]
- Patient receives IVIG; patient is due for her Gamunex (pharmacist Connie Manning here called and left a message for this patient's infusion pharmacy)
#History of Rhabdomyolysis
#GERD
-Stable
-Continue to monitor
#Celiac disease
#Hypertension
-Continue beta natalie
-Continue aldactone
#Hypothyroidism
- Continue Levothyroxine 200 mcg daily
- Although patient says she takes a gluten-free preparation at home, patient says that she is fine with taking the one available here in the hospital
#Raynaud's
#Psoriasis
-Takes Skyrizi outpatient
#Diabetic Neuropathy
-Continue home Gabapentin
#Iron deficiency
-Continue home Ferrous Sulfate
#Depression
- Mood stable
#History of Alcohol Use Disorder
- Patient has been sober for many months
- Continue naltrexone 50 mg daily
#Macular Edema (in left eye, both eyes are being treated)
#Celiac Disease
DVT prophylaxis: Eliquis
Code Status: Full code
Outpatient, patient said she sees a Plate Printer, Workers Compensation Claims Assistant, Elephant Tamer, Farm Or Ranch Animal Caretaker, Primary care, Filter Tender Jelly, Bottle House Quality Control Technician, Forklift Driver, Cardiac Electrophysiology and Neurology.
Anticipated Discharge: Within 24 hours
Subjective/Interval History
-
Date of Service: December 12, 2024
Patient was seen and examined. She denied any symptoms or complaints.
Objective Data
-
Labs:
Laboratory Results
12/12/24
07:53
WBC 3.3 L
Hgb 10.3 L
Hct 32.6 L
Plt Count 141 D
Sodium Pending
Potassium Pending
Chloride Pending
Carbon Dioxide Pending
BUN Pending
Creatinine Pending
Glucose Pending
Calcium Pending
Vital Signs:
Vital Signs
Temp Pulse Resp BP Pulse Ox
98.0 F 129 16 127/85 98
12/12/24 07:25 12/12/24 07:25 12/12/24 07:25 12/12/24 07:25 12/12/24 07:25
I&O
12/11/24 12/12/24 12/13/24
06:59 06:59 06:59
Intake Total 500 / 500 1200 / 1200
Balance 500 / 500 1200 / 1200
[2024-12-12 08:58] LABS: Blood Urea Nitrogen 7 mg/dl (7-17); Calcium 9.0 mg/dl (8.4-10.2); Carbon Dioxide 28 mmol/L (22-30); Chloride 104 mmol/L (98-107); Estimated Creatinine Clearance 119 ml/min; Glucose 150 mg/dl (70-99); Magnesium 1.8 mg/dl (1.6-2.3); Potassium 4.3 mmol/L (3.5-5.1); Sodium 137 mmol/L (135-145); eGFR > 60.00
[2024-12-12] MEDS: PT'S OWN INSULIN PUMP - HumaLOG SC ×2 (09:37→17:20)
[2024-12-12] MEDS: REVIA 50 MG PO (09:44)
[2024-12-12] MEDS: VITAMIN B-12 1000 MCG PO (09:44)
[2024-12-12] MEDS: VITAMIN B1 100 MG PO (09:44)
[2024-12-12] MEDS: NEURONTIN 100 MG PO ×3 (09:44→20:01)
[2024-12-12] MEDS: FOLVITE 1 MG PO (09:44)
[2024-12-12] MEDS: AMOXIL 500 MG PO ×3 (09:45→21:49)
[2024-12-12] MEDS: MAGNESIUM OXIDE 250 MG PO (09:45)
[2024-12-12] MEDS: VITAMIN D3 (cholecalciferol) 50 MCG PO (09:46)
[2024-12-12] MEDS: FEOSOL 325 MG PO ×2 (09:46→20:04)
[2024-12-12] MEDS: ELIQUIS 5 MG PO ×2 (09:46→20:01)
[2024-12-12] MEDS: ALDACTONE 12.5 MG PO (09:47)
[2024-12-12] MEDS: DEMADEX 40 MG PO (09:47)
[2024-12-12] MEDS: PACERONE 200 MG PO (09:48)
--- NOTE | 2024-12-12 10:47 | W.PN.CARDCBS ---
Addendum entered and electronically signed by Porter Ramos MD 12/12/24 14:42:
44-year-old woman with DKA, upon presentation to [facility] was in atrial fibs flutter with rapid RVR
PM type 1 diabetes, history of DKA, diabetic gastroparesis, PAF, history of subcutaneous ICD in 2023 for cardiac arrest on amiodarone, HFpEF, tricuspid valve regurgitation scheduled for repair at [facility], Raynaud's, celiac disease, history of EtOH
and marijuana use, history of myositis
Current meds: Amiodarone 200 mg a day, apixaban 5 mg twice daily, Neurontin 100 mg twice daily, with 100, naltrexone, amoxicillin, mag oxide, spironolactone 12.5 daily, thiamine, torsemide 40 mg a day, iron, metoprolol ER just doubled to 50 mg twice
daily
130/87, pulse 133, respiratory rate 16, afebrile, weight is 79 kg, head neck exam unremarkable, tachycardic 120s, lungs are clear, abdomen benign extremities without clubbing cyanosis or edema
ECG with atrial flutter 2-1
Hemoglobin 10.3, platelets 141, BUN/creatinine 7 and 0.5
Impression:
DKA, improved
History of ventricular tachycardia with subcu ICD
Atrial flutter, paroxysmal, onset likely 48 to 72 hours ago
Tricuspid regurgitation, plan for intervention in December, percutaneous versus surgical at [facility]
Gastroparesis
Chronic anemia
Celiac disease
Raynaud's with history of finger amputations
Depression
Alcohol and marijuana use
Plan:
She appears comfortable but I suspect her ventricular response will be very difficult to control medically. She remains in atrial flutter with 2-1 conduction.
She reports she has been compliant with Eliquis.
Best option is to discharge her in sinus rhythm. We will plan on cardioversion in the morning. She has had a cardioversion in the past, recently about 2 months ago. She agrees to proceed. Risks and benefits reviewed.
Thereafter, she could be discharged with follow-up at [facility]. She is here because she visits her parents.
Original Note:
Today's Communication / Plan
-
-uptitrate Toprol
-cont Eliquis
-f/u with outpt carpenter railcar 1 week after discharge
Impression / Plan
-
Outpatient carpenter railcar is Dr. Yang Dotson in [facility] .
Behavioral Instructor is Dr. Moisés Vargas [phone] with [facility] cardiology.
Dr. Kevin Braxton thoracic surgery at [facility] [phone]
Impression:
Presented 12/10/2024 with weakness, hyperglycemia
Acute hyperglycemia
Hypokalemia
Hypomagnesemia
Paroxysmal atrial flutter/fibrillation
Sinus tachycardia
Severe tricuspid regurgitation
Paroxysmal atrial fibrillation
Chronic anticoagulation on Eliquis
Ventricular tachycardia/cardiac arrest in setting of acute DKA in October 2023 status post ICD which was explanted and now with subcutaneous [employer] ICD placement, August 2024
Chronic heart failure
IDDM with insulin pump
Gastroparesis
Diabetic myonecrosis
Chronic anemia, baseline hemoglobin 8-9
GERD
Celiac
Hypertension
Hypothyroidism
Raynaud's disease with partial finger amputations
Depression
Prior alcohol abuse prior
History of marijuana use
Cardiac catheterization 11/02/2023 ([facility]): Mild nonobstructive coronary artery disease. Moderately elevated LVEDP. No significant [id number] gradient on pullback across aortic valve.
ANASTASIIA September 11, 2024 ([facility]): EF 60 to 65%, LA dilated, RA severely dilated, trace MR, massive tricuspid regurgitation with central small jet that originates near septal leaflet versus between atrial septal can measure raising a possibility of either a
small perforation or mall coaptation and RV mildly dilated
Echo 11/13/2020: EF 70 to 75%. Hyperdynamic LV. Normal regional wall motion. Trace tricuspid regurgitation. PAP 27 mmHg
Plan:
-Presented 12/10/2024 with weakness, hyperglycemia was was found to be acute hyperglycemia likely from malfunction/malabsorption of insulin pump. Blood sugars significantly improved with insulin.
-Electrolyte disturbance with hypoglycemia and hypomagnesemia. Aggressive repletion of magnesium and potassium. K 2.8, Mag 1.7 on 12/10/2024. Labs today 12/12 with improvement K 4.3, Mag 1.8
-Patient has ongoing tachycardia with periods of paroxysmal atrial flutter/fibrillation. Has been in atrial flutter throughout this hospitalization, HRs 120-140 bpm. Upon review of outpatient cardiology records it is believed her atrial
arrhythmias are being driven by her 'massive' tricuspid regurgitation. She reports heart rates at home are always on the higher side. HRs remain elevated despite improvement of blood sugar, fluid resuscitation and correction of electrolytes.
-uptitrate Toprol to 50 mg bid- I ordered with one time now dose of 25 mg
-Continue Eliquis 5 mg twice a day. Patient reports she is compliant taking medication.
-History of cardiac arrest/ventricular tachycardia in setting of DKA in October 2023. She was found to have no significant coronary artery disease on catheterization with normal ejection fraction. She initially had traditional ICD but it was then
explanted and she currently has subcutaneous [employer] ICD (confirmed [employer] on outpt records). Will interrogate device today, rep has been contacted. No sustained ventricular arrhythmias noted on telemetry. Continue
beta-natalie and amiodarone
-History of chronic heart failure with preserved ejection fraction. proBNP 1760. Patient does not appear to be acutely volume overloaded. She does not have any heart failure symptoms. Would continue current outpatient regimen of torsemide 40 mg
daily and Aldactone 12.5 mg daily.
-Patient reports she had ANASATSIIA last week at [facility] in [place] as she is undergoing evaluation for tricuspid valve surgery with Dr. Braxton at [facility]. She has an appointment with Dr. Braxton next week to discuss recent ANASTASIIA and
surgical plans. No clinical need to repeat or perform echo this admission
Outpatient records reviewed with above chart reflecting information. This included records from Dr. Braxton CT surgery, outpatient carpenter railcar Dr. Duckworth and contact worker lithography Dr. Vargas. I spent 78 minutes reviewing prior records from multiple
collaborating providers, [id number] encounter, treatment plan and decision, discussion with nursing, hospitalist, and documentation
[facility] 12/11/2024:
Patient has a 44-year-old female past medical history of type 1 diabetes, DKA, diabetic gastroparesis, paroxysmal atrial fibrillation on Eliquis, Cardiac arrest with Medtronic ICD in 2023 on amiodarone, chronic heart failure, tricuspid valve
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
due to placing her insulin pump over scar tissue with failure to deliver insulin. She was found to have significantly elevated blood sugar at home and was seen by a nurse who recommended she be evaluated in emergency department. On arrival to
emergency department glucose was 605. She was provided insulin with improvement of her sugar. From a cardiac standpoint she has noted intermittent palpitations but she reports this is normal for her. She denies chest pain, shortness of breath,
dizziness or lightheadedness, edema, orthopnea, PND. �No fevers or chills, vomiting or diarrhea, abdominal pain. �No weakness.
Cardiology being consulted for concern of tachycardia, atrial fibrillation/flutter.
Patient reports outpatient carpenter railcar is Dr. Yang Dotson in [facility] . Behavioral Instructor is Dr. Moisés aVrgas [phone] with [facility] cardiology. Dr. Kevin Braxton thoracic surgery at [facility] [phone]
She reports she has a tricuspid valve disorder and had ANASTASIIA last week at [facility]. She is being followed by Dr. Kevin Braxton of thoracic surgery and has an appointment next week to discuss next step for her valvular heart disease.
Progress Note - Museum Archivist
Subjective
Date of Service: December 12, 2024
HRs remain elevated in aflutter
pt denies palps, lightheadedness, CP, SOB
electrolytes improved
Objective
Labs:
12/12/24 07:53
12/12/24 07:53
Labs
Hgb 10.3 g/dL (12.0-16.0) L 12/12/24 07:53
Hct 32.6 % (37.0-47.0) L 12/12/24 07:53
Plt Count 141 10^3/uL (130-400) D 12/12/24 07:53
Sodium 137 mmol/L (135-145) 12/12/24 07:53
Potassium 4.3 mmol/L (3.5-5.1) D 12/12/24 07:53
BUN 7 mg/dl (7-17) 12/12/24 07:53
Creatinine 0.5 mg/dL (0.6-1.0) L 12/12/24 07:53
Glucose 150 mg/dl (70-99) H 12/12/24 07:53
Troponins
12/11/24 12/11/24 12/11/24
09:45 15:45 21:45
Troponin I Cancelled Cancelled Cancelled
Vital Signs and I&O:
Vital Signs
Temp Pulse Resp BP Pulse Ox
98.0 F 130 16 139/94 98
12/12/24 07:25 12/12/24 10:01 12/12/24 07:25 12/12/24 10:01 12/12/24 07:25
Vital Signs
Temp Pulse Resp BP Pulse Ox
98.0 F 130 16 139/94 98
12/12/24 07:25 12/12/24 10:01 12/12/24 07:25 12/12/24 10:01 12/12/24 07:25
Intake & Output
08/12/12/11/24 12/12/24 12/13/24
06:59 06:59 06:59 06:59
Intake Total 500 / 500 1200 / 1200
Balance 500 / 500 1200 / 1200
Physical Exam
Physical Exam
GEN: No distress, awake, Ox3
HEENT: supple, anicteric, mmm
LUNGS: CTA, no wheezes/rales
CV: tachy, Reg, S1/S2,2/6 syst LSB
ABD: soft, BS+, NT/ND
EXT: No edema
NEURO: Gross non-focal
SKIN: wound L ankle/talamantes, covered with drsg
[2024-12-12 11:17] VITALS: BP 143/89
[2024-12-12 11:30] LABS: Glucose - Point of Care 239 mg/dl (70-99)
[2024-12-12] MEDS: PT'S OWN INSULIN PUMP - HumaLOG 2.78 UNIT SC (11:35)
--- NOTE | 2024-12-12 13:00 | PTCARENOTE ---
pt HR alarming up to 150s on tele monitor while standing. EKG obtained, confirming aflutter with 2:1 AV conduction. pt BP stable at 130/87. no c/o chest pain, SOB, or palpitations. provider aware. no new orders at this time
[2024-12-12 15:30] VITALS: BP 127/86
[2024-12-12 17:18] LABS: Glucose - Point of Care 127 mg/dl (70-99)
[2024-12-12 18:18] LABS: Glucose - Point of Care 158 mg/dl (70-99)
[2024-12-12 19:44] VITALS: BP 112/80
[2024-12-12] MEDS: TOPROL XL 50 MG PO (20:01)
[2024-12-12 21:28] LABS: Glucose - Point of Care 184 mg/dl (70-99)
[2024-12-12] MEDS: MELATONIN 12 MG PO (21:50)
[2024-12-12] MEDS: PT'S OWN INSULIN PUMP - HumaLOG 0.55 UNIT SC (21:52)
[2024-12-12 23:51] VITALS: BP 125/86
[2024-12-13] MEDS: LOPRESSOR 5 MG IV (01:11)
[2024-12-13 03:55] VITALS: BP 120/84
[2024-12-13] MEDS: SYNTHROID 200 MCG PO (05:40)
[2024-12-13 05:51] LABS: Glucose - Point of Care 206 mg/dl (70-99)
[2024-12-13 06:00] VITALS: BMI 29.1
[2024-12-13] MEDS: PT'S OWN INSULIN PUMP - HumaLOG 2.12 UNIT SC (06:18)
[2024-12-13 07:00] VITALS: BP 118/80
--- NOTE | 2024-12-13 07:08 | W.PN.HOSP.TC ---
Today's Communication/Plan
-
Discharge today
Assessment / Plan
Assessment / Plan
Physical Exam
General: Not in acute distress
HEENT: Normocephalic, Moist mucosal membranes
Respiratory: Clear to Auscultation Bilaterally
Cardiac: S1/S2. Regular Rhythm and Tachycardia
GI: Soft, Non Tender, Non Distended, Normal Bowel Sounds
Musculoskeletal: No Cyanosis and No Edema
Skin: Warm and Dry
Neuro: AAO x 3, No Motor Deficits, Nonfocal/grossly intact, Cranial Nerves Intact and No Sensory Deficits
Psych: Calm
Assessment/Plan
44-year-old female past medical history of Type 1 Diabetes Mellitus, DKA, diabetic gastroparesis, diabetic myonecrosis?, paroxysmal atrial fibrillation on Eliquis, congestive heart failure, defibrillator, tricuspid valve disorder due for repair
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
pump likely being placed over scar tissue. No fevers or chills, vomiting or diarrhea, abdominal pain. No weakness. No evidence of DKA noted at the time of admission. Slight palpitations earlier. Heart rate at home can sometimes go up to 120s bpm.
Vital signs at the time of admission showed tachycardia. EKG with right bundle branch block, sinus tachycardia versus atrial flutter with heart rate of 127 bpm. Ketone smelling breath. Blood work showed sodium of 123. Blood sugar 605. Hemoglobin
stable 10.7. Anion gap of 15. VBG showed pH of 7.47. Beta hydroxybutyrate 2.99. Patient with hyperglycemia secondary to likely misplaced pump over scar tissue. She was given 10 units of NovoLog with improvement in blood sugar to 359. Resume
insulin pump over different location. Continue IV fluids. If blood sugars not improved in the morning and consult diabetes INSIDE BARREL LATHE OPERATOR. Lopressor if needed for persistent tachycardia. Should hopefully improve with IV fluids if sinus tachycardia. The
patient denied headache, fever, chills, sore throat, chest pain, palpitations, cough, shortness of breath, abdominal pain, nausea, vomiting, diarrhea or urinary symptoms.
#Acute hyperglycemia nonketotic/IDDM likely due to malfunctioning insulin pump/diagnosis age 28
#Type 1 Diabetes Mellitus
#History of diabetic neuropathy
-NOT in DKA
-HgbA1c 4 months ago 10.1
-Initial blood sugar 605, B hydroxy 2.99, anion gap 15, pH 7.47 on venous blood gas, glucose improved with Insulin
-Patient to change insulin site will monitor blood sugars every 4 hours with new insulin site
-Patient stated that she DOES not take Lantus at home, but uses her Insulin Pump only
-Consulted Diabetes INSIDE BARREL LATHE OPERATOR as blood sugars were still not controlled
#Pseudohyponatremia due to hyperglycemia likely from malfunction/malabsorption of insulin pump
- Resolved with improvement in glucose levels
#Severe Hypokalemia - RESOLVED
-Patient says that she does not take Potassium at home
-Magnesium okay -- but supplementation was given to optimize serum Magnesium, given her cardiac comorbidities
-Continue home Magnesium supplementation
-Replaced
-Recheck BMP
#Known History of A-fib/Atrial Flutter
#Sinus Tachycardia
-Patient reported that she has tachycardia chronically with HR up to ~120 bpm -- still remains quite high, often above the 120s range
-Continue Eliquis 5 mg BID
-Continue home Amiodarone and Metoprolol (Toprol increased on 12/12/24 to 50 mg BID for better HR control) for goal heart rate less than 110 bpm
-Upon review of outpatient cardiology records it is believed her atrial arrhythmias are being driven by her 'massive' tricuspid regurgitation
-Cardioversion 12/13/24: sinus rhythm after a single shock but sinus tach at 108 bpm
-I communicated with Dr. Rosenberg today and he said patient is okay for discharge today
#Chronic CHF
-Although patient received significant amount of IV fluids since admission, overall she appears euvolemic and compensated from a volume standpoint
-Patient underwent recent ANASTASIIA and therefore would not recommend repeating transthoracic echo at this time
-Continue Torsemide 40 mg daily
-Continue Aldactone 12.5 mg daily
-Patient reported that she had ANASTASIIA last week at [facility] in [place] as she is undergoing evaluation for tricuspid valve surgery with Dr. Braxton at [facility]. She has an appointment with Dr. Braxton next week to discuss recent ANASTASIIA and
surgical plans. No clinical need to repeat or perform echo this admission
#Ventricular tachycardia/cardiac arrest in setting of acute DKA in October 2023 status post ICD which was explanted and now with subcutaneous Medtronic ICD placement, August 2024
#Defibrillator history -- subcutaneous Medtronic ICD
- Cardiology will arrange for ICD interrogation here in the hospital
#Recent Lower Jaw Molar (bottom 3 teeth removal)
-Continue home antibiotics Amoxicillin
#Severe Tricuspid leaflet valve disorder
- Patient is due for surgical repair in the next 1-2 months through her primary automatic washer mechanic at [facility]
#Marijuana use
-Reports has not smoked in a few months
#Normocytic anemia
-Continue to monitor CBC
-Continue home iron supplementation
#History gastroparesis due to Type 2 Diabetes Mellitus
#History of diabetic myonecrosis
#Myopathy
- Was diagnosed at [facility]
- Patient receives IVIG; patient is due for her Gamunex (pharmacist Connie Manning here called and left a message for this patient's infusion pharmacy)
#History of Rhabdomyolysis
#GERD
-Stable
-Continue to monitor
#Celiac disease
#Hypertension
-Continue beta natalie
-Continue Aldactone
#Hypothyroidism
- Continue Levothyroxine 200 mcg daily
- Although patient says she takes a gluten-free preparation at home, patient says that she is fine with taking the one available here in the hospital
#Raynaud's
#Psoriasis
-Takes Skyrizi outpatient
#Diabetic Neuropathy
-Continue home Gabapentin
#Iron deficiency
-Continue home Ferrous Sulfate
#Depression
- Mood stable
#History of Alcohol Use Disorder
- Patient has been sober for many months
- Continue naltrexone 50 mg daily
#Macular Edema (in left eye, both eyes are being treated)
#Celiac Disease
DVT prophylaxis: Eliquis
Code Status: Full code
Outpatient, patient said she sees a Chief Architect, Senior Linux Administrator, Power Press Operator, Automatic Seamer, Primary care, Truck Bracer, Government Auditor, Custodial Worker, Cardiac Electrophysiology and Neurology.
More than 30 minutes spent in discharge including
Final examination of the patient
Summarizing hospital stay
Instructions for continuing care to all relevant caregivers
Preparation of discharge records, prescriptions, and referral forms
Total time spent (in minutes): 36
Anticipated Discharge: Today
Subjective/Interval History
-
Date of Service: December 13, 2024
Patient was seen and examined. She had cardioversion this morning. She denied any symptoms or complaints. She would like to go home today.
Objective Data
-
Labs:
Laboratory Results
12/13/24
06:00
Sodium Pending
Potassium Pending
Chloride Pending
Carbon Dioxide Pending
BUN Pending
Creatinine Pending
Glucose Pending
Calcium Pending
Vital Signs:
Vital Signs
Temp Pulse Resp BP Pulse Ox
98.1 F 131 17 120/84 98
12/13/24 03:55 12/13/24 03:55 12/13/24 03:55 12/13/24 03:55 12/13/24 03:55
I&O
12/12/24 12/13/24 12/14/24
06:59 06:59 06:59
Intake Total 1200 / 1200 480 / 480
Balance 1200 / 1200 480 / 480
--- NOTE | 2024-12-13 07:41 | PN.DE.MGMTRT ---
Insulin Management
- -
12/13/2024: Diabetes Management Follow up
Patient admitted 12/10 with Blood sugar problem, glucose 605. PMH: diabetes, gastroparesis, diabetic myonecrosis, afib, defib, chronic CHF, GERD, celiac disease, HTN, hypothyroid, depression, alcohol abuse, marijuana use. Prior to admission was
using the tandem control IQ pump with Humalog insulin, [employer] infusion set and DexCom G7. No A1C reported, cr .5, eGFR > 60.
Patient is awake alert and oriented, resting in bed. She is able to discuss diabetes care. States she sees and endocrine in [place]. States she just updated her pump to be able to use the G7, replaced infusion set, but inserted in scar tissue in
abdomen. She has since changed her set and pump is infusing.
Glucose range 127 to 239, corrected with 3.33 units. Fasting glucose 206, corrected with 2.12 units.
Pump settings:
Basal 0.75 Sensitivity 1:45, carb ratio 1:12, target 110.
24 hour basal total 18 units.
Will continue insulin pump with no changes to settings.
Discussed with nurse. Will cont to follow
Diabetes History
- -
Type of Diabetes: 1
Pre-Admission Diabetes Regimen
12/12/24
07:53
Creatinine 0.5 L
Lab Results
Hemoglobin A1c 9.8 % (4.0-5.6) H 12/10/24 16:23
Insulin Pump Settings
IP Diabetes Regimen
12/12/24 12/12/24 12/12/24
07:50 07:53 11:29
Glucose 150 H
POC Glucose 146 H 239 H
12/12/24 12/12/24 12/12/24
17:17 18:17 21:26
Glucose
POC Glucose 127 H 158 H 184 H
12/13/24
05:49
Glucose
POC Glucose 206 H
Meal type: Breakfast
Amount consumed: 100%
Patient Education
[2024-12-13] MEDS: FOLVITE 1 MG PO (08:28)
[2024-12-13] MEDS: ALDACTONE 12.5 MG PO (08:28)
[2024-12-13] MEDS: AMOXIL 500 MG PO (08:28)
[2024-12-13] MEDS: FEOSOL 325 MG PO (08:28)
[2024-12-13] MEDS: ELIQUIS 5 MG PO (08:28)
[2024-12-13] MEDS: NEURONTIN 100 MG PO (08:29)
[2024-12-13] MEDS: VITAMIN D3 (cholecalciferol) 50 MCG PO (08:29)
[2024-12-13] MEDS: PACERONE 200 MG PO (08:29)
[2024-12-13] MEDS: VITAMIN B1 100 MG PO (08:29)
[2024-12-13] MEDS: VITAMIN B-12 1000 MCG PO (08:29)
[2024-12-13] MEDS: DEMADEX 40 MG PO (08:29)
[2024-12-13] MEDS: MAGNESIUM OXIDE 250 MG PO (08:29)
[2024-12-13] MEDS: REVIA 50 MG PO (08:29)
[2024-12-13] MEDS: TOPROL XL 50 MG PO (08:29)
--- NOTE | 2024-12-13 10:10 | ITS.CL.CARDI ---
Separator Operator [employer] - Cardioversion
Cardioversion
Procedure Report:
Date of Procedure: 12/13/24.
Procedure: Cardioversion.
Indication: Symptomatic atrial flutter
Performing Physician: Shakira Trevizo MD
Technique: The patient was brought to the holding area. Signed informed consent was obtained. A time out was called and performed. The patient was sedated by a member of the anesthesia service. Anticoagulation status was reviewed and was
appropriate. R-2 pads were placed anteriorly and posteriorly. A 200 J synchronized biphasic shock restored normal sinus rhythm without significant bradycardia. There were no complications.
Conclusion: Uncomplicated cardioversion from atrial fibrillation to sinus tachycardia.
Recommendation: Routine post cardioversion care. Continue termite treater anticoagulation.
cc: Dr Adorno
[2024-12-13 11:00] VITALS: BP 115/81
[2024-12-13] MEDS: PT'S OWN INSULIN PUMP - HumaLOG 2 UNIT SC (12:14)
[2024-12-13 12:23] LABS: Blood Urea Nitrogen 14 mg/dl (7-17); Calcium 8.7 mg/dl (8.4-10.2); Carbon Dioxide 31 mmol/L (22-30); Chloride 97 mmol/L (98-107); Estimated Creatinine Clearance 118 ml/min; Glucose 233 mg/dl (70-99); Magnesium 1.6 mg/dl (1.6-2.3); Potassium 4.3 mmol/L (3.5-5.1); Sodium 134 mmol/L (135-145); eGFR > 60.00
--- NOTE | 2024-12-13 12:30 | CM ---
Patient seen bedside.
s/p CV today.
Plan d/c home today, father will transport.
IMM completed.
Plan: home no needs.
--- NOTE | 2024-12-13 13:03 | W.PN.CARDCBS ---
Addendum entered and electronically signed by Cristian Rosenberg MD 12/13/24 13:13:
I saw and examined the patient.
The CERTIFIED MEDICAL TRANSCRIPTIONIST or PA's note was reviewed and I agree with the note.
Comment: General: Well developed, well nourished in NAD.
Remains in sinus rhythm status post cardioversion. Discussed with patient in detail and she will make follow-up cardiology visit with her heat engineering teacher in [place]. She is at high risk of recurrent atrial flutter especially if she has structural
heart disease with need for valve surgery.
Original Note:
Today's Communication / Plan
-
-s/p cardioversion, back in SR/ST
-discharge today with f/u with her primary heat engineering teacher next week. Pt will call and make apptmt.
-she has f/u with her surgeon on 12/25 to discuss tricuspid valve surgery
-would continue higher dose Toprol 50 mg bid.
Impression / Plan
-
Outpatient heat engineering teacher is Dr. Yang Dotson in [facility] .
Silk Conditioner is Dr. Moisés Vargas [phone] with [facility] cardiology.
Dr. Kevin Braxton thoracic surgery at [facility] [phone]
Impression:
Presented 12/10/2024 with weakness, hyperglycemia
Acute hyperglycemia
Hypokalemia
Hypomagnesemia
Paroxysmal atrial flutter/fibrillation
Sinus tachycardia
Severe tricuspid regurgitation
Paroxysmal atrial fibrillation
Chronic anticoagulation on Eliquis
Ventricular tachycardia/cardiac arrest in setting of acute DKA in October 2023 status post ICD which was explanted and now with subcutaneous [employer] ICD placement, August 2024
Chronic heart failure
IDDM with insulin pump
Gastroparesis
Diabetic myonecrosis
Chronic anemia, baseline hemoglobin 8-9
GERD
Celiac
Hypertension
Hypothyroidism
Raynaud's disease with partial finger amputations
Depression
Prior alcohol abuse prior
History of marijuana use
Cardiac catheterization 11/02/2023 ([facility]): Mild nonobstructive coronary artery disease. Moderately elevated LVEDP. No significant [id number] gradient on pullback across aortic valve.
ANASTASIIA September 11, 2024 ([facility]): EF 60 to 65%, LA dilated, RA severely dilated, trace MR, massive tricuspid regurgitation with central small jet that originates near septal leaflet versus between atrial septal can measure raising a possibility of either a
small perforation or mall coaptation and RV mildly dilated
Echo 11/13/2020: EF 70 to 75%. Hyperdynamic LV. Normal regional wall motion. Trace tricuspid regurgitation. PAP 27 mmHg
Plan:
-Presented 12/10/2024 with weakness, hyperglycemia was was found to be acute hyperglycemia likely from malfunction/malabsorption of insulin pump. Blood sugars significantly improved with insulin.
-Electrolyte disturbance with hypoglycemia and hypomagnesemia. Aggressive repletion of magnesium and potassium. K 2.8, Mag 1.7 on 12/10/2024. Labs today 12/13 K 4.3, Mag 1.6
-Patient has ongoing tachycardia with periods of paroxysmal atrial flutter/fibrillation. Has been in atrial flutter throughout this hospitalization, HRs 120-140 bpm. Upon review of outpatient cardiology records it is believed her atrial
arrhythmias are being driven by her 'massive' tricuspid regurgitation. She reports heart rates at home are always on the higher side. HRs remain elevated despite improvement of blood sugar, fluid resuscitation and correction of electrolytes.
-uptitrated Toprol to 50 mg bid 12/12
-s/p CV today 12/13, restored sinus tachycardia 108 bpm. EKG personally reviewed.
-Continue Eliquis 5 mg twice a day. Patient reports she is compliant taking medication.
-History of cardiac arrest/ventricular tachycardia in setting of DKA in October 2023. She was found to have no significant coronary artery disease on catheterization with normal ejection fraction. She initially had traditional ICD but it was then
explanted and she currently has subcutaneous [employer] ICD (confirmed [employer] on outpt records). Will interrogate device today, rep has been contacted. No sustained ventricular arrhythmias noted on telemetry. Continue
beta-natalie and amiodarone
-History of chronic heart failure with preserved ejection fraction. proBNP 1760. Patient does not appear to be acutely volume overloaded. She does not have any heart failure symptoms. Would continue current outpatient regimen of torsemide 40 mg
daily and Aldactone 12.5 mg daily.
-Patient reports she had ANASTASIIA last week at [facility] in [place] as she is undergoing evaluation for tricuspid valve surgery with Dr. Braxton at [facility]. She has an appointment with Dr. Braxton 12/25/2024 to discuss recent ANASTASIIA and
surgical plans. No clinical need to repeat or perform echo this admission
Outpatient records reviewed with above chart reflecting information. This included records from Dr. Braxton CT surgery, outpatient heat engineering teacher Dr. Duckworth and canal driver Dr. Vargas. I spent 78 minutes reviewing prior records from multiple
collaborating providers, [id number] encounter, treatment plan and decision, discussion with nursing, hospitalist, and documentation
HPI 12/11/2024:
Patient has a 44-year-old female past medical history of type 1 diabetes, DKA, diabetic gastroparesis, paroxysmal atrial fibrillation on Eliquis, Cardiac arrest with Medtronic ICD in 2023 on amiodarone, chronic heart failure, tricuspid valve
regurgitation due for repair in December at [facility], celiac disease, Raynaud's disease, chronic anemia, former alcohol use disorder, former marijuana use disorder, myositis on IVIG, eczema, presenting 12/10/2024 with weakness, hyperglycemia
due to placing her insulin pump over scar tissue with failure to deliver insulin. She was found to have significantly elevated blood sugar at home and was seen by a nurse who recommended she be evaluated in emergency department. On arrival to
emergency department glucose was 605. She was provided insulin with improvement of her sugar. From a cardiac standpoint she has noted intermittent palpitations but she reports this is normal for her. She denies chest pain, shortness of breath,
dizziness or lightheadedness, edema, orthopnea, PND. �No fevers or chills, vomiting or diarrhea, abdominal pain. �No weakness.
Cardiology being consulted for concern of tachycardia, atrial fibrillation/flutter.
Patient reports outpatient heat engineering teacher is Dr. Yang Dotson in [facility] . Silk Conditioner is Dr. Moisés Vargas [phone] with [facility] cardiology. Dr. Kevin Braxton thoracic surgery at [facility] [phone]
She reports she has a tricuspid valve disorder and had ANASTASIIA last week at [facility]. She is being followed by Dr. Kevin Braxton of thoracic surgery and has an appointment next week to discuss next step for her valvular heart disease.
Progress Note - Terminal Superintendent
Subjective
Date of Service: December 13, 2024
s/p cardioversion, back in NSR/ST
feels well, no CP, SOB, palps, LH
Objective
Labs:
12/12/24 07:53
12/13/24 11:44
Labs
Hgb 10.3 g/dL (12.0-16.0) L 12/12/24 07:53
Hct 32.6 % (37.0-47.0) L 12/12/24 07:53
Plt Count 141 10^3/uL (130-400) D 12/12/24 07:53
Sodium 134 mmol/L (135-145) L 12/13/24 11:44
Potassium 4.3 mmol/L (3.5-5.1) 12/13/24 11:44
BUN 14 mg/dl (7-17) 12/13/24 11:44
Creatinine 0.6 mg/dL (0.6-1.0) 12/13/24 11:44
Glucose 233 mg/dl (70-99) H 12/13/24 11:44
Troponins
12/11/24 12/11/24 12/11/24
09:45 15:45 21:45
Troponin I Cancelled Cancelled Cancelled
Vital Signs and I&O:
Vital Signs
Temp Pulse Resp BP Pulse Ox
98.4 F 120 17 115/81 97
12/13/24 11:00 12/13/24 11:00 12/13/24 11:00 12/13/24 11:00 12/13/24 11:00
Vital Signs
Temp Pulse Resp BP Pulse Ox
98.4 F 120 17 115/81 97
12/13/24 11:00 12/13/24 11:00 12/13/24 11:00 12/13/24 11:00 12/13/24 11:00
Intake & Output
12/11/24 12/12/24 12/13/24 12/14/24
06:59 06:59 06:59 06:59
Intake Total 500 / 500 1200 / 1200 960 / 960
Balance 500 / 500 1200 / 1200 960 / 960
Physical Exam
Physical Exam
GEN: No distress, awake, Ox3
HEENT: supple, anicteric, mmm
LUNGS: CTA, no wheezes/rales
CV: Reg, S1/S2, 2/6 syst LSB murmur
ABD: soft, BS+, NT/ND
EXT: No edema
NEURO: Gross non-focal
SKIN: No rash
--- NOTE | 2024-12-13 14:05 | W.DCSUMMARY ---
Discharge Summary
Discharge Data
Date of Admission: 12/10/24
Date of Discharge: 12/13/24
Total time spent discharging patient (in min): 36
-
Pending Results: No
Hospital Course
44-year-old female with past medical history of type 1 diabetes, DKA, diabetic gastroparesis, paroxysmal atrial fibrillation on Eliquis, chronic tachycardia (heart rate at home can go up to 120s at rest) congestive heart failure, cardiac
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
myositis on IVIG and eczema, presented with elevated blood sugar due to placing an insulin pump likely being placed over scar tissue. No fevers or chills, vomiting or diarrhea, abdominal pain, and no weakness. However she did have slight
palpitations earlier. On admission, labs showed sodium of 123, blood sugar 605, anion gap of 15, VBG showed pH of 7.47 and beta hydroxybutyrate 2.99. Patient was determined to likely have hyperglycemia secondary to likely misplaced pump over scar
tissue, and it was determined patient was not in Diabetic Ketoacidosis. Patient was given 10 units of NovoLog with improvement of blood sugar to 359. Patient's Insulin Pump issue was fixed and she was also given intravenous fluids. Patient's
hyponatremia significantly improved with the improvement in hyperglycemia. Diabetes Nurse Practitioner was consulted. Cardiology was consulted given patient's high proBNP (but patient was not having any symptoms of acute heart failure), and her
rapid atrial flutter. Patient's home Toprol XL was increased from 25 mg BID to 50 mg BID. Patient did not need any intravenous diuresis and her outpatient diuretics were continued. On 12/13/24, patient had and uncomplicated cardioversion from atrial
fibrillation to sinus tachycardia. Patient was determined to be at high risk of recurrent atrial flutter especially if she has structural heart disease with need for valve surgery. Patient was doing well, she really wanted to go home, and she was
discharged.
Discharge Plan
-
Patient Disposition: Home (Routine Discharge)
Discharge Diagnosis/Procedures: #Acute hyperglycemia nonketotic/IDDM likely due to malfunctioning insulin pump/diagnosis age 28
#Type 1 Diabetes Mellitus
#History of diabetic neuropathy
#Pseudohyponatremia due to hyperglycemia likely from malfunction/malabsorption of insulin pump
#Severe Hypokalemia - RESOLVED
#Known History of A-fib/Atrial Flutter status post uncomplicated cardioversion from atrial fibrillation to sinus tachycardia, on 12/13/24
#Sinus Tachycardia
#Chronic CHF
#Ventricular tachycardia/cardiac arrest in setting of acute DKA in October 2023 status post ICD which was explanted and now with subcutaneous [employer] ICD placement, August 2024
#Defibrillator history -- subcutaneous Med[employer] ICD
#Recent Lower Jaw Molar (bottom 3 teeth removal)
#Severe Tricuspid leaflet valve disorder
#Marijuana use
#Normocytic anemia
#History gastroparesis due to Type 2 Diabetes Mellitus
#History of diabetic myonecrosis
#Myopathy
#History of Rhabdomyolysis
#GERD
#Celiac disease
#Hypertension
#Hypothyroidism
#Raynaud's
#Psoriasis
#Diabetic Neuropathy
#Iron deficiency
#Depression
#History of Alcohol Use Disorder
- Patient has been sober for many months
- Continue naltrexone 50 mg daily
#Macular Edema (in left eye, both eyes are being treated)
#Celiac Disease
Condition: Good
Diet: Low Fat, Low Cholesterol, 2 Gram Sodium, Diabetic, Carb Controlled and Restrict fluids to 64 oz
Activity: As tolerated
Blood Work: BMP and Magnesium with your outpatient provider by Monday12/16/24
Specialty Instructions: Weigh Daily- Call MD for wt gain/loss 3 lbs overnight/5 lbs in 1 week
Referrals:
saad ramirez [Other] - 12/25/24
Referral Note: f/u with your cardiac surgeon as scheduled
Cardiac Services,Provider, [Active]
Referral Note: Call your primary rope maker to make hospital f/u apptmt for next week
UNKNOWN - PT DOES,NOT KNOW [Family Provider]
Additional Discharge Medication Instructions: Your Metoprolol Succinate dose has been increased to 50 mg PO BID
Prescriptions:
New
metoprolol succinate 50 mg Tablet Extended Release 24 Hr
50 mg PO BID Qty: 60 1RF
Continued
cholecalciferol (vitamin D3) 2,000 UNITS tablet
2,000 units PO DAILY
folic acid 1 MG tablet
1 mg PO DAILY
gabapentin 100 MG capsule
See Rx Instructions .ROUTE .COMPLEX
Rx Instructions:
100 mg orally ;1 po am, 2 po pm 2 po qhs
Eliquis
5 mg PO BID
amiodarone
200 mg PO DAILY
ferrous sulfate
325 mg PO BID
melatonin
12 mg PO HS PRN (Reason: insomnia)
naltrexone
50 mg PO DAILY
torsemide
40 mg PO DAILY
Patient Comments:
confirmed with patient
magnesium oxide
250 mg PO DAILY
(DME) subcutaneous insulin pump 1
Patient Comments:
Patient on Humalog insulin 1 unit/h
Skyrizi 150 mg/mL Pen Injector
150 mg SC [id number]
amoxicillin 500 mg Tablet
500 mg PO TID
Patient Comments:
Per patient, unknown duration of amoxicillin course (suspects 10-14 days), start date 12/04/24
cyanocobalamin (vitamin B-12) 2,500 mcg Tablet, Sublingual
2,500 mcg SUBLINGUAL DAILY
biotin [Meribin] 5 mg Capsule
5 mg PO DAILY
thiamine HCl (vitamin B1) 100 mg Tablet
100 mg PO DAILY
spironolactone [Aldactone] 25 mg Tablet
12.5 mg PO DAILY
Humalog U-100 Insulin 100 unit/mL Cartridge
1 sliding scale dose SC DIRECTED
Rx Instructions:
USE UP TO 80 UNITS PER DAY VIA INSULIN PEN
Baqsimi 3 mg/actuation [place],Non-Aerosol
3 mg INTRANASAL PRN PRN (Reason: hypoglycemia)
levothyroxine [Unithroid] 200 mcg tablet
200 mcg PO Daily
Gamunex-C 20 gram/200 mL (10 %) solution
800 ml IV QMONTH
Rx Instructions:
Administer with 400 mL 10% 10g/100 mL for a total of 120g Gamunex, dose split over 3 days/month
Gamunex-C 10 gram/100 mL (10 %) solution
400 ml IV QMONTH
Rx Instructions:
Administer with 800 mL Gamunex 20g/200 mL for a total of 120g Gamunex, dose split over 3 days/month
Discontinued
metoprolol succinate 25 mg Tablet Extended Release 24 Hr
25 mg PO Q12H
Rx Instructions:
BID
Discharge Orders:
Discharge Patient (As Directed); Ordered 12/13/24
Ordered By: Ciro Buckner
Discharge Date and Time
Discharge Date/Time: 12/13/24 15:01
Print Language: ALB[place]
== END 2024-12-13 15:01 | disposition home or self-care (01) | DRG 919 ==
LOC: 4 EAST ACU 19:47
PROVIDERS: Internal Medicine Cardiovascular Disease; Nurse Practitioner Gerontology; ADMITTING PHYSICIAN Hospitalist; ATTENDING PHYSICIAN Hospitalist; CONSULT PHYSICIAN Internal Medicine Cardiovascular Disease; EMERGENCY PHYSICIAN Emergency Medicine
PROC: 5A2204Z Restoration of Cardiac Rhythm, Single (ICD-10-PCS; 2024-12-13)
DX: T85.614A Breakdown (mechanical) of insulin pump, initial encounter (principal); E10.10 Type 1 diabetes mellitus with ketoacidosis without coma; E87.1 Hypo-osmolality and hyponatremia; I48.92 Unspecified atrial flutter; I50.32 Chronic diastolic (congestive) heart failure; E10.43 Type 1 diabetes mellitus with diabetic autonomic (poly)neuropathy; K31.84 Gastroparesis; I48.0 Paroxysmal atrial fibrillation; K90.0 Celiac disease; I73.00 Raynaud's syndrome without gangrene; D64.9 Anemia, unspecified; Y74.2 Prosthetic and other implants, materials and accessory general hospital and personal-use devices associated with adverse incidents; E87.6 Hypokalemia; Z79.01 Long term (current) use of anticoagulants; Z95.810 Presence of automatic (implantable) cardiac defibrillator; K21.9 Gastro-esophageal reflux disease without esophagitis; E03.9 Hypothyroidism, unspecified; I11.0 Hypertensive heart disease with heart failure; E61.1 Iron deficiency; F32.A Depression, unspecified; F10.10 Alcohol abuse, uncomplicated; Z79.899 Other long term (current) drug therapy; G47.00 Insomnia, unspecified; Z79.4 Long term (current) use of insulin; Z91.040 Latex allergy status; Z79.890 Hormone replacement therapy; Z79.82 Long term (current) use of aspirin; Z79.624 Long term (current) use of inhibitors of nucleotide synthesis; Z96.41 Presence of insulin pump (external) (internal); Z82.49 Family history of ischemic heart disease and other diseases of the circulatory system; E83.42 Hypomagnesemia; I25.10 Atherosclerotic heart disease of native coronary artery without angina pectoris
CPT/HCPCS: 80048; 80053; 82010; 82040; 82805; 82962; 83036; 83735; 83880; 85025; 85027; 87070; 92960; 93005; 96360; 96372; 99285